=== PATIENT | male | born 1965 | race American Indian/Alaskan Native ===

== ENCOUNTER 2019-04-04 01:24 | Emergency (ER) | payer SELFPAY ==
[2019-04-04 02:06] LABS: Basophils % (Auto) 0.2 % (0.0-1.8); Eosinophils % (Auto) 0.2 % (0.0-4.3); Hematocrit 47.3 % (35.5-45.6); Hemoglobin 16.4 gm/dl (11.8-15.2); Lymphocytes # (Auto) 1.5 K/mm3 (1.2-5.4); Lymphocytes % (Auto) 12.9 % (13.4-35.0); Mean Corpuscular HGB Conc 35 % (32-34); Mean Corpuscular Volume 90 fl (84-94); Monocytes # (Auto) 0.8 K/mm3 (0.0-0.8); Monocytes % (Auto) 7.4 % (0.0-7.3); Platelet Count 300 K/mm3 (140-440); Red Blood Count 5.26 M/mm3 (3.65-5.03); Red Cell Distribution Width 13.3 % (13.2-15.2)
--- NOTE | 2019-04-04 02:14 | Emergency Department Report ---
HPI - General Chief Complaint: Psych Time Seen by Provider: 04/04/19 01:58 - HPI HPI: Room 17 The patient is a 54-year-old male presenting with a chief complaint of bizarre behavior. Family states patient is having another "episode." The patient poorl y has a history of schizophrenia and bipolar disorder and per family earlier in the week the patient was noted to have scattered disorganized thoughts. Family states these episodes always lead to an encounter with police. Today the patient was in [employer] where he reportedly defecated in the shoulder prompting police to be called. The patient had a mental health assessment done at [facility] where the patient was found to be "disorganized and confused." Patient denies suicidal or homicidal ideation. Patient denies recent visual or auditory hallucinations Location: Mental state Duration: [See above] Quality: [See above] Severity: [See above] Modifying factors: [see above] Context: [see above] Mode of transportation: [not driving] ED Past Medical Hx - Past Medical History Previous Medical History?: Yes Hx Psychiatric Treatment: Yes (bipolar, schizophrenia) - Surgical History Past Surgical History?: No - Family History Family history: no significant - Social History Smoking Status: Never Smoker Substance Use Type: None (denies illicit drug use) - Medications Home Medications: Home Medications Medication Instructions Recorded Confirmed Last Taken Type Unobtainable 10/13/16 10/13/16 Unknown History ED Review of Systems ROS: Stated complaint: MH EVAL Other details as noted in HPI Constitutional: no symptoms reported Eyes: denies: eye pain ENT: denies: throat pain Respiratory: no symptoms reported Cardiovascular: denies: chest pain Endocrine: no symptoms reported Gastrointestinal: denies: abdominal pain Neurological: denies: headache Psychiatric: denies: auditory hallucinations, visual hallucinations, homicidal thoughts, suicidal thoughts Physical Exam - Physical Exam Vital Signs: Vital Signs 04/04/19 01:40 Temperature 97.9 F Pulse Rate 82 Blood Pressure 119/79 Physical Exam: GENERAL: The patient is well-developed well-nourished male lying on stretcher not appearing to be in acute distress. [] HEENT: Normocephalic. Atraumatic. Extraocular motions are intact. Patient has moist mucous membranes. NECK: Supple. No meningitic signs are noted. Trachea midline CHEST/LUNGS: Clear to auscultation. There is no respiratory distress noted. HEART/CARDIOVASCULAR: Regular. There is no tachycardia. There is no gallop rub or murmur. ABDOMEN: Abdomen is soft, nontender. Patient has normal bowel sounds. There is no abdominal distention. SKIN: There is no rash. There is no edema. There is no diaphoresis. NEURO: The patient is awake, alert, and oriented. The patient is cooperative. The patient has no focal neurologic deficits. The patient has normal speech and gait. MUSCULOSKELETAL: There is full range of motion of left shoulder. There is no evidence of acute injury. ED Course Vital Signs 04/04/19 01:40 Temperature 97.9 F Pulse Rate 82 Blood Pressure 119/79 ED Medical Decision Making - Lab Data Result diagrams: 04/04/19 01:53 04/04/19 01:53 Laboratory Tests 04/04/19 04/04/19 04/04/19 01:53 01:53 01:53 WBC RBC Hgb Hct MCV MCH MCHC RDW Plt Count Lymph % (Auto) [place] % (Auto) Eos % (Auto) Baso % (Auto) Lymph # [place] # Eos # Baso # Seg Neutrophils % Seg Neutrophils # Sodium 138 Potassium 4.3 Chloride 100.1 Carbon Dioxide 27 Anion Gap 15 BUN 8 L Creatinine 0.9 Estimated GFR > 60 BUN/Creatinine Ratio 9 Glucose 113 H Calcium 10.1 Urine Color Urine Turbidity Urine pH Ur Specific [place] Urine Protein Urine Glucose (UA) Urine Ketones Urine Blood Urine Nitrite Urine Bilirubin Urine Urobilinogen Ur Leukocyte Esterase Urine WBC (Auto) Urine RBC (Auto) U Epithel Cells (Auto) Salicylates < 0.3 L Urine Opiates Screen Urine Methadone Screen Acetaminophen < 5.0 L Ur Barbiturates Screen Ur Phencyclidine Scrn Ur Amphetamines Screen U Benzodiazepines Scrn Urine Cocaine Screen U Marijuana (THC) Screen Plasma/Serum Alcohol 04/04/19 04/04/19 04/04/19 01:53 01:53 01:56 WBC 11.3 H RBC 5.26 H Hgb 16.4 H Hct 47.3 H MCV 90 MCH 31 MCHC 35 H RDW 13.3 Plt Count 300 Lymph % (Auto) 12.9 L [place] % (Auto) 7.4 H Eos % (Auto) 0.2 Baso % (Auto) 0.2 Lymph # 1.5 [place] # 0.8 Eos # 0.0 Baso # 0.0 Seg Neutrophils % 79.3 H Seg Neutrophils # 8.9 H Sodium Potassium Chloride Carbon Dioxide Anion Gap BUN Creatinine Estimated GFR BUN/Creatinine Ratio Glucose Calcium Urine Color Straw Urine Turbidity Clear Urine pH 8.0 H Ur Specific [place] 1.004 Urine Protein <15 mg/dl Urine Glucose (UA) Neg Urine Ketones Neg Urine Blood Neg Urine Nitrite Neg Urine Bilirubin Neg Urine Urobilinogen < 2.0 Ur Leukocyte Esterase Neg Urine WBC (Auto) < 1.0 Urine RBC (Auto) 1.0 U Epithel Cells (Auto) < 1.0 Salicylates Urine Opiates Screen Urine Methadone Screen Acetaminophen Ur Barbiturates Screen Ur Phencyclidine Scrn Ur Amphetamines Screen U Benzodiazepines Scrn Urine Cocaine Screen U Marijuana (THC) Screen Plasma/Serum Alcohol < 0.01 04/04/19 01:56 WBC RBC Hgb Hct MCV MCH MCHC RDW Plt Count Lymph % (Auto) [place] % (Auto) Eos % (Auto) Baso % (Auto) Lymph # [place] # Eos # Baso # Seg Neutrophils % Seg Neutrophils # Sodium Potassium Chloride Carbon Dioxide Anion Gap BUN Creatinine Estimated GFR BUN/Creatinine Ratio Glucose Calcium Urine Color Urine Turbidity Urine pH Ur Specific [place] Urine Protein Urine Glucose (UA) Urine Ketones Urine Blood Urine Nitrite Urine Bilirubin Urine Urobilinogen Ur Leukocyte Esterase Urine WBC (Auto) Urine RBC (Auto) U Epithel Cells (Auto) Salicylates Urine Opiates Screen Presumptive negative Urine Methadone Screen Presumptive negative Acetaminophen Ur Barbiturates Screen Presumptive negative Ur Phencyclidine Scrn Presumptive negative Ur Amphetamines Screen Presumptive negative U Benzodiazepines Scrn Presumptive negative Urine Cocaine Screen Presumptive negative U Marijuana (THC) Screen Presumptive negative Plasma/Serum Alcohol - Differential Diagnosis schizophrenia Critical care attestation.: If time is entered above; I have spent that time in minutes in the direct care of this critically ill patient, excluding procedure time. ED Disposition Clinical Impression: Schizophrenia Disposition: [id number]/TX-65 PSY HOSP/PSY UNIT Is pt being admited?: No Does the pt Need Aspirin: No Condition: Fair Time of Disposition: 03:03 (awaiting acceptance)
[2019-04-04 02:17] LABS: BUN/Creatinine Ratio 9; Blood Urea Nitrogen 8 mg/dL (9-20); Calcium 10.1 mg/dL (8.4-10.2); Hemolysis Index 11
[2019-04-04 02:35] LABS: Bilirubin,Urine NEG (Negative); Blood,Urine NEG (Negative); Color,Urine Straw (Yellow); Protein,Urine <15 mg/dL mg/dL (Negative); Urobilinogen,Urine < 2.0 mg/dL (<2.0)
[2019-04-04 02:39] LABS: WBC,Urine < 1.0 /HPF (0.0-6.0)
[2019-04-04 02:43] LABS: Amphetamine Screen,Urine PRESUMPTIVE NEGATIVE; Benzodiazepines Screen,Urine PRESUMPTIVE NEGATIVE; Cannabinoid Screen,Urine PRESUMPTIVE NEGATIVE; Cocaine Screen,Urine PRESUMPTIVE NEGATIVE; Methadone Screen,Urine PRESUMPTIVE NEGATIVE; Opiate Screen,Urine PRESUMPTIVE NEGATIVE
[2019-04-04] MEDS ORDERED: GEODON IM ONE ×2 (17:50→17:54)
[2019-04-04] MEDS ORDERED: WATER FOR INJ Sterile (PF) 10 ML ONE (17:54)
--- NOTE | 2019-04-04 18:20 | Consultation ---
History of Present Illness - Reason for Consult Consult date: 04/04/19 Reason for consult: psychiatric evaluation - Chief Complaint Chief complaint: "How do I know that's who I am without my tag?" - History of Present Psychiatric Illness The patient is a 54-year-old male presenting with a chief complaint of bizarre behavior. Family states patient is having another "episode." He was seen in the ER for psychiatric evaluation. According to the record, he has a history of schizophrenia and bipolar disorder. The record indicates his family earlier in the week, noticed the patient was noted to have scattered and disorganized thoughts. Family states these episodes always lead to an encounter with police. Prior to coming to the ER, the patient was in [employer] where he reportedly defecated in the shoulder prompting police to be called. The patient had a mental health assessment done at [facility] where the patient was found to be "disorganized and confused." Patient denies suicidal or homicidal ideation. Patient denies recent visual or auditory hallucinations. He acknowledged previously taking antipsychotics and denies adverse reaction to risperdal. He says he cannot give any further information because he does not have an arm tag. Medications and Allergies Allergies Allergy/AdvReac Type Severity Reaction Status Date / Time No Known Allergies Allergy Unverified 10/13/16 13:29 Home Medications Medication Instructions Recorded Confirmed Last Taken Type Unobtainable 10/13/16 04/04/19 Unknown History Past psychiatric history - Past Medical History Past Medical History: other (unable to obtain) - Social History Social history: other (unable to obtain) Mental Status Exam - Vital signs Last Vital Signs Temp 98.5 F 04/04/19 08:00 Pulse 92 H 04/04/19 08:00 Resp 18 04/04/19 12:00 BP 131/74 04/04/19 08:00 Pulse Ox 99 04/04/19 08:00 - Exam Orientation: time, place, person Affect: flat Mood: calm Thought content: paranoia Thought Process: Disorganized Perceptions: none Concentration: distractible Motor activity: normal Level of consciousness: alert Memory: Intact Sleep Symptoms: Difficulty Falling Asleep Interaction: uncooperative Results Result Diagrams: 04/04/19 01:53 04/04/19 01:53 Abnormal lab results 04/04/19 04/04/19 04/04/19 Range/Units 01:53 01:53 01:53 WBC (4.5-11.0) K/mm3 RBC (3.65-5.03) M/mm3 Hgb (11.8-15.2) gm/dl Hct (35.5-45.6) % MCHC (32-34) % Lymph % (Auto) (13.4-35.0) % [place] % (Auto) (0.0-7.3) % Seg Neutrophils % (40.0-70.0) % Seg Neutrophils # (1.8-7.7) K/mm3 BUN 8 L (9-20) mg/dL Glucose 113 H (75-100) mg/dL Urine pH (5.0-7.0) Salicylates < 0.3 L (2.8-20.0) mg/dL Acetaminophen < 5.0 L (10.0-30.0) ug/mL 04/04/19 04/04/19 Range/Units 01:53 01:56 WBC 11.3 H (4.5-11.0) K/mm3 RBC 5.26 H (3.65-5.03) M/mm3 Hgb 16.4 H (11.8-15.2) gm/dl Hct 47.3 H (35.5-45.6) % MCHC 35 H (32-34) % Lymph % (Auto) 12.9 L (13.4-35.0) % [place] % (Auto) 7.4 H (0.0-7.3) % Seg Neutrophils % 79.3 H (40.0-70.0) % Seg Neutrophils # 8.9 H (1.8-7.7) K/mm3 BUN (9-20) mg/dL Glucose (75-100) mg/dL Urine pH 8.0 H (5.0-7.0) Salicylates (2.8-20.0) mg/dL Acetaminophen (10.0-30.0) ug/mL All other labs normal. Assessment and Plan Assessment and plan: Impression: Acute psychosis hx of schizophrenia Recommendations: continue 1013 start risperdal 1mg hs for psychosis. benefits outweigh risks dispo: transfer to inpatient psychiatric facility staffed with Dr. Guajardo
[2019-04-04] MEDS: RisperDAL PO SCH (22:29)
--- NOTE | 2019-04-05 19:11 | Progress Note ---
Subjective - Reason for Consult Consult date: 04/05/19 Reason for consult: follow up - Chief Complaint Chief complaint: "I'm tripping!" The patient is a 54-year-old male presenting with a chief complaint of bizarre behavior. Family states patient is having another "episode." He was seen in the ER for psychiatric evaluation. According to the record, he has a history of schizophrenia and bipolar disorder. He was standing at the door nakied and lilliani ng he is tripping. His thought process is disorganized. - Exam Orientation: time, place, person Affect: flat Mood: calm Thought content: paranoia Thought Process: Disorganized Perceptions: none Concentration: distractible Motor activity: ambulatory Level of consciousness: alert Memory: Intact Sleep Symptoms: Difficulty Falling Asleep Interaction: uncooperative Mental Status Exam - Vital signs Last Vital Signs Temp 99.3 F 04/05/19 14:12 Pulse 128 H 04/05/19 14:12 Resp 22 04/05/19 14:12 BP 122/74 04/05/19 14:12 Pulse Ox 97 04/05/19 14:12 Assessment and Plan Impression: Acute psychosis hx of schizophrenia Recommendations: continue 1013 start risperdal 1mg hs for psychosis. benefits outweigh risks dispo: transfer to inpatient psychiatric facility staffed with Dr. Guajardo
[2019-04-05] MEDS ORDERED: NACL 0.9% 1000 ML 1,000 ML IV ONE (20:26)
[2019-04-05] MEDS: RisperDAL PO SCH (22:21)
[2019-04-05] MEDS ORDERED: GEODON IM PRN (22:37)
[2019-04-05] MEDS ORDERED: BENADRYL IM PRN (22:37)
[2019-04-06] MEDS ORDERED: WATER FOR INJ Sterile (PF) 10 ML ONE (08:22)
[2019-04-06] MEDS: ATIVAN IM PRN (08:41)
--- NOTE | 2019-04-06 12:49 | Progress Note ---
Subjective - Reason for Consult Consult date: 04/06/19 Reason for consult: Psychiatry Follow-up - Chief Complaint Chief complaint: "I have to go" 54-year-old male presented to the ER for bizarre behavior. Today the patient was disorganized and naked during the assessment. He was seen in the seclusion room. He was asked several questions about his mental health, but his answer wasn't logical. He stated throughout the interview that he must "go." The patient appeared to be responding to some type of stimuli. No gestures of SI/HI's. Mental Status Exam - Vital signs Last Vital Signs Temp 98.4 F 04/06/19 09:11 Pulse 125 H 04/06/19 09:11 Resp 16 04/06/19 09:11 BP 138/89 04/06/19 09:11 Pulse Ox 100 04/06/19 09:11 - Exam Narrative exam: Unable to complete the MSE because of the patient's condition. Assessment and Plan Impression: Unspecified Psychosis. Today the patient was disorganized and naked during the assessment. UDS is negative. The patient appeared to be responding to some type of stimuli. DDx: Schizophrenia, Bipolar DO with psychosis Recommendations/Plan: Continue 1013 and Risperdal 1 mg PO BID for psychosis. Attempted to discuss the possible metabolic side effects of Risperdal with the patient, Dispo: The patient was referred to inpatient psy services. Will staff with Dr Spencer Guajardo.
[2019-04-06] MEDS: RisperDAL PO SCH (22:05)
[2019-04-07] MEDS: ATIVAN IM PRN ×2 (02:36→15:15)
[2019-04-07] MEDS ORDERED: WATER FOR INJ Sterile (PF) 10 ML ONE (08:54)
--- NOTE | 2019-04-07 12:42 | Progress Note ---
Subjective - Reason for Consult Consult date: 04/07/19 Reason for consult: Psychiatry Follow-up - Chief Complaint Chief complaint: "Geri layton" 54-year-old male presented to the ER for bizarre behavior. Today the patient was still disorganized during the assessment. He continue to appear as if he's responding to some type of stimuli. The psy assessment could not be completed. No gestures of SI/HI's. Mental Status Exam - Vital signs Last Vital Signs Temp 98.1 F 04/07/19 03:35 Pulse 97 H 04/07/19 03:35 Resp 18 04/07/19 03:35 BP 121/71 04/07/19 03:35 Pulse Ox 97 04/07/19 03:35 - Exam Narrative exam: Unable to complete the MSE because of the patient's condition. Assessment and Plan Impression: Unspecified Psychosis. Today the patient was still disorganized during the assessment. UDS is negative. The patient continue to appear as if he's responding to some type of stimuli. Head CT ordered per the ER Physician. DDx: Schizophrenia, Bipolar DO with psychosis Recommendations/Plan: Continue 1013 and Risperdal 1 mg PO BID for psychosis. Attempted to discuss the possible metabolic side effects of Risperdal with the patient, Dispo: The patient was referred to inpatient psy services. Will staff with Dr Spencer Guajardo.
[2019-04-07 15:41] LABS: Albumin 4.1 g/dL (3.9-5); Bilirubin,Direct 0.2 mg/dL (0-0.2)
--- NOTE | 2019-04-07 17:13 | Cat Scan Report ---
PROCEDURE: CT HEAD/BRAIN WO CON TECHNIQUE: Computerized tomography of the head was performed without contrast material. CT DOSE LENGTH PRODUCT: 1045.7 mGycm HISTORY: AMS COMPARISONS: None . FINDINGS: There is no CT evidence of intracranial mass, hemorrhage, acute territorial infarction, or hydrocepha chivo. Intracranial arteries are symmetric in density. Calvarium is intact. Paranasal sinuses and masto ids are aerated. IMPRESSION: No CT evidence of acute abnormality . This document is electronically signed by Nancy Santoro MD., April 07 2019 05:11:32 PM ET
[2019-04-07] MEDS: RisperDAL PO SCH (22:05)
[2019-04-08 04:22] LABS: Amphetamine Screen,Urine PRESUMPTIVE NEGATIVE; Benzodiazepines Screen,Urine PRESUMPTIVE NEGATIVE; Cannabinoid Screen,Urine PRESUMPTIVE NEGATIVE; Cocaine Screen,Urine PRESUMPTIVE NEGATIVE; Methadone Screen,Urine PRESUMPTIVE NEGATIVE; Opiate Screen,Urine PRESUMPTIVE NEGATIVE
--- NOTE | 2019-04-08 18:19 | Progress Note ---
Subjective - Reason for Consult Reason for consult: psych consult - Chief Complaint Chief complaint: 54 yo male. Patient continues to present with a similar presentation as yesterday. He continues to remove his clothing. When discussed with him, he is unable to give reasons as to why he is engaging in this behavior. He says he knows this is inappropriate behavior but can't tell me why is needs to do this. He is also soiling himself. Patient notes that he's been in the psych hospital before but cannot recall what helped him improve. No SI/HI. Mental Status Exam - Vital signs Last Vital Signs Temp 98.5 F 04/08/19 08:07 Pulse 109 H 04/08/19 08:07 Resp 18 04/08/19 08:07 BP 127/84 04/08/19 08:07 Pulse Ox 97 04/08/19 08:07 - Exam Orientation: person Affect: other (constricted) Mood: anxious Thought content: delusions Thought Process: Disorganized Perceptions: auditory Speech: normal rate and pattern Concentration: distractible Motor activity: normal Level of consciousness: alert Memory: Recent Impaired Interaction: apathetic Assessment and Plan Assessment and Plan Impression: Psychosis NOS No change in patient's presentation from yesterday. DDx: Schizophrenia, Bipolar DO with psychosis Recommendations/Plan: Increase Risperdal 1 mg PO qam and 2mg po qhs for psychosis. Dispo: The patient was referred to inpatient psych services.
[2019-04-08] MEDS ORDERED: RisperDAL PO SCH (22:00)
[2019-04-09] MEDS: ATIVAN IM PRN (07:19)
[2019-04-09] MEDS: RisperDAL PO SCH ×2 (09:55→10:02)
--- NOTE | 2019-04-09 10:28 | Progress Note ---
Subjective - Reason for Consult Consult date: 04/09/19 Reason for consult: Psychiatry Follow-up - Chief Complaint Chief complaint: 54-year-old male presented to the ER for bizarre behavior. Today the patient was calm during the assessment. the patient more lucid durig the interview today. He stated that he have experienced "stressful movements" in the past. He could not elaborate a lot about what happened prior to his ER visit when asked. He stated that he need help for his mental health. He denies SI/HI's and AVH's. He denies any side effects of his medications. Mental Status Exam - Vital signs Last Vital Signs Temp 99 F 04/09/19 08:29 Pulse 91 H 04/09/19 08:29 Resp 20 04/09/19 09:01 BP 121/80 04/09/19 08:29 Pulse Ox 98 04/09/19 09:01 - Exam Narrative exam: MSE: Appearance: calm, cooperative Behavior: regular eye contact Speech: regular rate and tone Mood: "okay" Affect: flat Thought Process: circumstantial Thought Content: denies SI/HI's and AVH's Motor Activity: sitting up in bed Cognition: A/O x3 Insight: variable Judgment: variable Assessment and Plan Impression: Unspecified Psychosis. Today the patient was calm during the assessment. UDS is negative. . DDx: Schizophrenia, Bipolar DO with psychosis Recommendations/Plan: Continue 1013 and Risperdal 1 mg PO daily and 2 mg PO HS for psychosis. Discussed possible metabolic side effects of isperdal with the patient, he verbalized understanding. ispo: The patient was accepted at [facility] for inpatient psy services. Will staff with Dr Spencer Guajardo.
[2019-04-09 12:22] VITALS: BP 124/85
== END 2019-04-09 12:21 ==
LOC: EEVIPCON 01:24 → ED 01:24
DX: F29 Unspecified psychosis not due to a substance or known physiological condition (principal); F20.9 Schizophrenia, unspecified
CPT/HCPCS: 36415; 80048; 80076; 80307; 81001; 85025; 96372; 99285; G0480; J1200; J2060; J3486; J7030; 70450; 80320